=== PATIENT | female | born 1970 | race Caucasian/White ===

== ENCOUNTER 2016-04-06 18:06 | Inpatient (IN) | payer OTHER ==
[~2016-04-06] VITALS: Ht 172.7 cm; Wt 96.8 kg
[~2016-04-06 18:06] MED LIST: NAPROSYN500 MG PO; NORCO 5/3251 TABLET PO; PEN-VEE K,VEET250 MG PO; PROZAC40 MG PO
[2016-04-06] MEDS ORDERED: PERCOCET 7.51 TABLET PO (22:02)
[2016-04-06] MEDS ORDERED: FLUOXETINE HCL20 MG PO (22:02)
[2016-04-06] MEDS ORDERED: RISPERIDONE4 MG PO (22:03)
[2016-04-06] MEDS ORDERED: MORPHINE SULFAT15 M1 PO (22:03)
[2016-04-06] MEDS ORDERED: METHYLPHENIDATE5 MG PO (22:04)
[2016-04-06] MEDS ORDERED: CLONAZEPAM0.5 MG PO (22:04)
[2016-04-06] MEDS ORDERED: NEURONTIN300 MG PO (22:04)
[2016-04-06] MEDS ORDERED: COGENTIN1 MG PO (22:05)
[2016-04-06] MEDS ORDERED: [UNRECOGNIZED DRUG - OTHER] IJ (22:06)
[2016-04-06] MEDS ORDERED: [UNRECOGNIZED DRUG - OTHER] EPID (22:09)
[2016-04-06 22:33] LABS: ADD MEDTOX COMMENT Y; AMPHETAMINE NEGATIVE (500 ng/mL); BARBITURATES NEGATIVE (200 ng/mL); BENZODIAZEPINES NEGATIVE (150 ng/mL); COCAINE NEGATIVE (150 ng/mL); INTERNAL CONTROLS VALID? YES; METHADONE NEGATIVE (200 ng/mL); METHAMPHETAMINE NEGATIVE (500 ng/mL); OPIATES (MORPHINE) PRESUMPTIVE POSITIVE (100 ng/mL); OXYCODONE NEGATIVE (100 ng/mL); PHENCYCLIDINE NEGATIVE (25 ng/mL); PROPOXYPHENE NEGATIVE (300 ng/mL); THC CANNABINOIDS NEGATIVE (50 ng/mL); TRICYCLIC ANTIDEPRESSANTS NEGATIVE (300 ng/mL)
[2016-04-06 22:44] LABS: HEMATOCRIT 44.8 % (36.0-46.0); MCH 30.5 PG (29.0-34.0); MCHC 33.9 G/DL (30.0-36.0); MCV 89.8 FL (83-99); PLATELET COUNT 282 K/uL (156-360); RBC DIS.WIDTH-CV 14.9 % (11.8-14.6); RED BLOOD COUNT 4.99 M/uL (3.80-5.20); WHITE BLOOD COUNT 13.2 K/uL (4.1-10.2)
[2016-04-06 22:57] LABS: CHLORIDE 104 mEq/L (99-109); POTASSIUM 3.9 mEq/L (3.7-5.4); SODIUM 139 mEq/L (136-147)
[2016-04-06 22:58] LABS: GLUCOSE 94 mg/dL (70-99)
[2016-04-06 23:00] LABS: ANION GAP 10 MEQ/L (2-14)
[2016-04-06 23:02] LABS: GFR ESTIMATE (CALCULATED) > 59 mL/min/; SERUM ETHYL ALCOHOL < 10 mg/dL
[2016-04-06 23:04] LABS: UREA NITROGEN (BUN) 11 mg/dL (9-23)
[2016-04-06 23:06] LABS: SALICYLATE < 5.0 MG/DL (15-30)
[2016-04-07 03:51] LABS: OPIATES QUANTITATIVE VALUE 0 NG/ML
[2016-04-07 07:34] VITALS: BP 153/72
[2016-04-07 15:15] VITALS: BP 120/58
[2016-04-08 07:48] VITALS: BP 115/61
[2016-04-08] MEDS ORDERED: BENZTROPINE MESY1 MG PO (10:33)
[2016-04-08] MEDS ORDERED: RISPERDAL2 MG PO (10:33)
[2016-04-08] MEDS ORDERED: GABAPENTIN300 MG PO (10:33)
[2016-04-08] MEDS ORDERED: NICOTINE PATCH1 EAC2 TD (10:33)
[2016-04-08] MEDS ORDERED: CLONAZEPAM0.5 MG PO (10:33)
[2016-04-08] MEDS ORDERED: DULOXETINE HCL20 MG PO (10:33)
== END 2016-04-08 13:32 | disposition home or self-care (01) | DRG 885 ==
LOC: EME 18:06 → EDOF 21:31 → 1WEST 23:33
PROVIDERS: Emergency Medicine
DX: F31.4 Bipolar disorder, current episode depressed, severe, without psychotic features (principal); R45.851 Suicidal ideations; F20.9 Schizophrenia, unspecified; M23.8X1 Other internal derangements of right knee; F40.00 Agoraphobia, unspecified; F42.9 Obsessive-compulsive disorder, unspecified; Z87.39 Personal history of other diseases of the musculoskeletal system and connective tissue
CPT/HCPCS: 80048; 84999; 85027; 90839; 99281; 99285; G0480